=== PATIENT | female | born 1990 | race Caucasian/White ===

== ENCOUNTER 2017-11-14 19:09 | Inpatient (IN) | payer OTHER ==
[2017-11-14] MEDS ORDERED: Dinoprostone* 10 MG VAG.SUPP VAGINAL ONE (19:53)
--- NOTE | 2017-11-14 21:02 | PN ---
L&D Outpatient: Visit - Reproductive Information Estimated Due Date: 11/22/17 Gestational Age: 38 Weeks and 6 Days : 1 Para: 0 - Reason for Visit Visit Reason: induction for iugr/ oligohydramnios - Antepartal Records Antepartal Record: Reviewed, Complicated by: - iugr - Patient History Patient History Significant: No L&D Outpatient: ROS - Review of Systems Constitutional: Comfortable CV Complaint: No Respiratory: Shortness of Breath: No Gastrointestinal: No Nausea/Vomiting Genitourinary: No Bleeding, No Leaking Fluid Musculoskeletal: No Complaint Movement: Normal L&D Outpatient: Exam - Abdominal Exam Abdomen Exam: Non-Tender - Membranes Membrane Status: Intact - Ultrasound/Biophysical Profile Ultrasound Status: Not Done L&D Outpatient: EFM - External Monitor Findings Baseline Heart Rate: 135 External Monitor Findings: Variability Moderate L&D Outpatient: Asses/Plan - Discharge Diagnosis Discharge Diagnosis: Other - cervidil for iugr at 39 weeks
[2017-11-14] MEDS ORDERED: Lidocaine 1% MPF* 2 ML VIAL ONE (23:51)
[2017-11-15 09:59] LABS: ABS Basophils 0.1 10^3/ul (0-0.2); ABS Eosinophils 0.1 10^3/ul (0-0.6); ABS Lymphocytes 2.5 10^3/ul (1.0-4.8); ABS Monocytes 0.6 10^3/ul (0-0.8); ABS Neutrophils 8.4 10^3/ul (1.5-7.7); ABS Nucleated RBC 0 10^3/ul; Eosinophil % 0.9 % (0-6); Hematocrit 39 % (35-47); Hemoglobin 13.5 g/dl (12.0-16.0); Lymphocyte % 21.4 % (25-47); Mean Corpuscular HGB Conc 35 g/dl (31-36); Mean Corpuscular Hemoglobin 33 pg (27-31); Mean Corpuscular Volume 95 fL (80-97); Mean Platelet Volume 10.9 um3 (7.4-10.4); Nucleated Red Blood Cells % 0.1; Platelet Count 204 10^3/ul (150-450); Red Blood Count 4.07 10^6/ul (4.0-5.4); Red Cell Distribution Width 13 % (10.5-15); White Blood Count 11.8 10^3/ul (3.5-10.8)
[2017-11-15] MEDS ORDERED: Oxytocin in LR* 20 UNITS/1,000 ML BAG IVPB SCH (10:00)
--- NOTE | 2017-11-15 11:55 | HP ---
General Information - General Information Maternal Age: 27 Grav: 1 Para: 0 SAB: 0 IEA: 0 Estimated Due Date: 11/22/17 Determined By: Early Ultrasound Gestational Age in Weeks and Days: 38 Weeks and 6 Days Maternal Blood Type and Rh: O Positive - Results this Serology/RPR Result: Non-Reactive Rubella Result: Immune HBsAg Result: Negative HIV Result: Negative GBS Culture Result: Negative Past Medical History Pertinent Past Medical History: See Records Pertinent Past Surgical History: None Pertinent Family History: Non-Contributory - Antepartal Records Antepartal Records: Reviewed, Complicated by: - IUGR Review of Systems Constitutional: Comfortable CV Complaint: No Respiratory: Shortness of Breath: No Gastrointestinal: No Nausea/Vomiting Genitourinary: No Dysuria, No Bleeding, No Leaking Fluid Musculoskeletal: Contractions - irregular, off and on all night Movement: Normal Exam Allergies/Adverse Reactions: Allergies No Known Allergies Allergy (Verified 11/14/17 20:21) Lab Values - Entire Visit: Laboratory Tests 11/15/17 11/15/17 09:30 09:30 WBC 11.8 H RBC 4.07 Hgb 13.5 Hct 39 MCV 95 MCH 33 H MCHC 35 RDW 13 Plt Count 204 MPV 10.9 H Neut % (Auto) 71.6 Lymph % (Auto) 21.4 L [place] % (Auto) 5.3 Eos % (Auto) 0.9 Baso % (Auto) 0.8 Absolute Neuts (auto) 8.4 H Absolute Lymphs (auto) 2.5 Absolute Monos (auto) 0.6 Absolute Eos (auto) 0.1 Absolute Basos (auto) 0.1 Absolute Nucleated RBC 0 Nucleated RBC % 0.1 Blood Type O Positive Antibody Screen Negative - Measurements Height: 5 ft 3.78 in Weight: 136 lb 10.986 oz Weight in lbs: 136.686 Body Mass Index (BMI): 23.6 Pre- Weight: 103 lb 9.876 oz Weight Gained This : 33.069 lbs and 0.006 ozs - Exam Abdomen: No Upper Quadrant Pain Breast: Breast Exam Deferred Extremities: No Edema Heart: Normal Rhythm/Heart Sounds HEENT: No Significant Findings Rectal: Rectal Exam Deferred Targeted Exam Findings Station: -1 - Unable to reach around head to pt's cervix due to discomfort with exam Presenting Part: Vertex Membrane Status: Intact Bleeding/Discharge: None EFM Findings - External Monitor Findings Baseline Heart Rate: 140 External Monitor Findings: Accelerations Present, No Pattern of Variable or Late Decelerations, Variability Moderate, Baseline Stable Contractions: Irregular Assessment/Plan - Reason for Visit Reason for Visit: Induction at 39 weeks due to IUGR - Obstetrical Risk Factors Risk Factors Comment: IUGR - Plan Plan: Induction
[2017-11-15] MEDS ORDERED: OBEPIDURAL* 250 ML EPIDURAL ONE (20:10)
[2017-11-15] MEDS ORDERED: Sodium Citrate/Citric Acid* 15 ML UDC PO PRN (21:12)
[2017-11-15] MEDS ORDERED: Phenylephrine IV* 40 MCG/ML 10 ML SYRINGE IV PUSH PRN (21:12)
[2017-11-15] MEDS ORDERED: Famotidine TAB* 20 MG PO PRN (21:12)
[2017-11-15] MEDS ORDERED: Acetaminophen TAB* 325 MG PO ONE (21:52)
[2017-11-15] MEDS ORDERED: OBEPIDURAL* 250 ML EPIDURAL SCH (22:00)
[2017-11-16] MEDS ORDERED: Acetaminophen TAB* 325 MG PO PRN (02:57)
[2017-11-16] MEDS ORDERED: Glycerin ADULT SUPP PR PRN (02:57)
[2017-11-16] MEDS ORDERED: Dibucaine 1% 28.35 GM TUBE PR PRN (02:57)
[2017-11-16] MEDS ORDERED: Witch Hazel PAD* JAR TOPICAL PRN (02:57)
[2017-11-16] MEDS: Ibuprofen TAB* 600 MG PO PRN ×2 (07:43→14:56)
[2017-11-16] MEDS: Docusate CAP* 100 MG PO SCH ×2 (14:56→19:41)
[2017-11-16] MEDS: Simethicone TAB* 80 MG TAB.CHEW PO SCH (15:06)
[2017-11-17 06:33] LABS: ABS Neutrophils 5.8 10^3/ul (1.5-7.7); Hematocrit 35 % (35-47); Hemoglobin 12.2 g/dl (12.0-16.0); Mean Corpuscular HGB Conc 35 g/dl (31-36); Mean Corpuscular Hemoglobin 34 pg (27-31); Mean Corpuscular Volume 96 fL (80-97); Mean Platelet Volume 10.1 um3 (7.4-10.4); Platelet Count 168 10^3/ul (150-450); Red Blood Count 3.61 10^6/ul (4.0-5.4); Red Cell Distribution Width 13 % (10.5-15); White Blood Count 9.2 10^3/ul (3.5-10.8)
[2017-11-17 06:34] LABS: ABS Basophils 0 10^3/ul (0-0.2); ABS Eosinophils 0.2 10^3/ul (0-0.6); ABS Lymphocytes 2.5 10^3/ul (1.0-4.8); ABS Monocytes 0.6 10^3/ul (0-0.8); ABS Nucleated RBC 0 10^3/ul; Eosinophil % 1.7 % (0-6); Lymphocyte % 27.7 % (25-47); Nucleated Red Blood Cells % 0
[2017-11-17] MEDS: Docusate CAP* 100 MG PO SCH ×3 (08:50→20:08)
[2017-11-17] MEDS ORDERED: Ferrous Gluconate TAB* 324 MG TAB PO SCH (09:00)
[2017-11-17] MEDS: Ibuprofen TAB* 600 MG PO PRN ×2 (10:38→20:08)
[2017-11-18 08:04] VITALS: BP 108/71
[2017-11-18] MEDS: Ibuprofen TAB* 600 MG PO PRN (08:55)
[2017-11-18] MEDS: Docusate CAP* 100 MG PO SCH (08:55)
== END 2017-11-18 15:45 | disposition home or self-care (01) | DRG 560 ==
LOC: MCHOBOUT 19:09 → MCHOB 21:14
PROVIDERS: ADMIT Obstetrics & Gynecology; ATTEND Obstetrics & Gynecology
PROC: 3E0P7VZ Introduction of Hormone into Female Reproductive, Via Natural or Artificial Opening (ICD-10-PCS; principal; 2017-11-14)
PROC: 10E0XZZ Delivery of Products of Conception, External Approach (ICD-10-PCS; 2017-11-14)
PROC: 0UQMXZZ Repair Vulva, External Approach (ICD-10-PCS; 2017-11-14)
PROC: 4A1HX4Z Monitoring of Products of Conception, Cardiac Electrical Activity, External Approach (ICD-10-PCS; 2017-11-14)
DX: O36.5930 Maternal care for other known or suspected poor fetal growth, third trimester, not applicable or unspecified (principal); O41.03X0 Oligohydramnios, third trimester, not applicable or unspecified; Z3A.38 38 weeks gestation of pregnancy; Z37.0 Single live birth; O71.82 Other specified trauma to perineum and vulva
CPT/HCPCS: 36415; 59200; 85025; 86850; 86900; 86901; 88307; A9270-GY